=== PATIENT | male | born 1950 | race Asian ===

== ENCOUNTER 2019-01-21 10:23 | Day surgery (SDC) | payer OTHER ==
[2019-01-21 11:00] VITALS: TEMP 97.8; BMI 15.7
[2019-01-21 13:50] VITALS: BP 136/85; PULSE 71
--- NOTE | 2019-01-26 16:31 | PATH ---
Surgical Pathology Report Patient Name: XAVIER GRIJALVA [facility]. Rec. #: [id number] /Age/Gender: 1950 (Age: 68) / M Account: [id number] Location: [facility]-ENDOSCOPY Taken: 01/21/2019 Received: 01/21/2019 Reported: 01/26/2019 Physicians: Theron Proctor D.O. Specimen(s) Received A: ANTRUM B: ANGULARIS AND BODY C: 2ND PORTION DUODENUM AND BULB Clinical History Nausea, vomiting, abdominal pain. Abnormal CAT scan Final Diagnosis A. STOMACH, ANTRUM, BIOPSY: GASTRIC ANTRAL MUCOSA WITH MILD CHRONIC ACTIVE GASTRITIS. IMMUNOHISTOCHEMICAL STAIN FOR H. PYLORI IS NEGATIVE. B. STOMACH, ANGULARIS AND BODY, BIOPSY: GASTRIC BODY MUCOSA WITH MILD CHRONIC GASTRITIS. IMMUNOHISTOCHEMICAL STAIN FOR H. PYLORI IS NEGATIVE. C. DUODENUM, SECOND PORTION, BIOPSY: DUODENAL MUCOSA WITHOUT SIGNIFICANT PATHOLOGIC FINDINGS. Electronically Signed Caitlyn Espinoza M.D. Gross Description A. Received in formalin, labeled "antrum" are 2 kaiser, irregular portions of soft tissue, each measuring 0.3 cm. in greatest dimension. The specimens are submitted in toto in one cassette. B. Received in formalin, labeled "angularis and body" are 2 kaiser, irregular portions of soft tissue, each measuring 0.2 cm. in greatest dimension. The specimens are submitted in toto in one cassette. C. Received in formalin, labeled "second portion duodenum"" are 2 kaiser, irregular portions of soft tissue, each measuring 0.3 cm. in greatest dimension. The specimens are submitted in toto in one cassette. AE/01/22/2019 ebram/01/22/2019
== END 2019-01-21 13:59 | disposition home or self-care (01) ==
LOC: JASU-ENDO 10:23
PROVIDERS: ATTEND Internal Medicine Gastroenterology
PROC: 0DB68ZX Excision of Stomach, Via Natural or Artificial Opening Endoscopic, Diagnostic (ICD-10-PCS; 2019-01-21)
PROC: 0DB98ZX Excision of Duodenum, Via Natural or Artificial Opening Endoscopic, Diagnostic (ICD-10-PCS; principal; 2019-01-21 11:30)
DX: K29.50 Unspecified chronic gastritis without bleeding (principal); R93.3 Abnormal findings on diagnostic imaging of other parts of digestive tract
CPT/HCPCS: 88305-TC; 88342-TC